=== PATIENT | female | born 1945 | race Caucasian/White ===

== ENCOUNTER → 2016-09-13 | Outpatient (CLI) | payer OTHER, BC ==
[~2016-09-13] VITALS: Ht 149.9 cm; Wt 59.0 kg
[~2016-09-13] MED LIST: ACTEMRA200 MG/10 IV; ACTEMRA80 MG/4 ML IJ; ALDACTONE50 MG PO; AMITRIPTYLINE H50 M2 PO; ARTIFICIAL TEAR15 M3 OPHTHALMIC; ASTAXANTHIN4 MG PO; ATORVASTATIN CA40 MG PO; CALCIUM 500 +1 EAC5 PO; CALCIUM 600 +1 EAC1 PO; CO Q-10100 MG PO; COLACE100 MG PO; COQ-10100 MG PO; COUMADIN 2 MG TA2 M1; COUMADIN 2 MG TA2 M1 PO; COUMADIN 3 MG TA3 M1 PO; COUMADIN 5 MG TA5 M1 PO; COUMADIN7.5 MG PO; DICLOFENAC EC PO; DYAZIDE 37.5-21 EACH OR; DYAZIDE 37.5-21 EACH PO; ELAVIL PO; ESTRACE1 MG PO; EXCEDRIN CAPLE1 EACH PO; FENTANYL PA50 MCG/HR TP; FISH OIL 1,0001 EAC5 PO; FISH OIL 1,001000 M2 PO; FLONASE 0.05%50 MCG NASAL; FOSAMAX 70 MG T70 M1 PO; HYDROCODON-ACE1 EAC1 PO; IMITREX100 MG PO; IMURAN 50MG TAB50 M1 PO; INDERAL LA160 M1 PO; INDERAL LA160 MG PO; KRILL OIL500 MG PO; LASIX 40 MG TAB40 M2 PO; LASIX 40 MG TAB40 MG PO; LUTEIN20 MG PO; LUTEIN40 MG PO; MAGNESIUM GLUC500 M1 PO; MEGA BIOTIN10000 MCG PO; MIRALAX255 GM PO; MIRAPEX 0.250.25 M1 PO; MIRAPEX0.5 MG PO; MULTIVITAMINS PO; NEXIUM 40 MG CA40 M1 PO; OPANA ER20 MG PO; OPANA ER30 MG PO; OPANA10 MG PO; OXYCODON-ACETA1 EAC1 PO; OXYCODONE HCL15 MG PO; OXYCODONE-ACET1 EAC2 PO; OXYCODONE-APAP1 EAC6 PO; OXYCONTIN20 M1 PO; OXYCONTIN30 MG PO; PERCOCET 10-321 EACH PO; PERCOCET 7.5-31 EACH PO; PREDNISONE 2.52.5 M1 PO; PRILOSEC 20 MG20 MG PO; PROBIOTIC1 EAC1 PO; PROBIOTIC1 EACH PO; QUNOL PO; RECLAST 55 MG/100 M IV; REMICADE 1100 MG/VIA; REMICADE 1100 MG/VIA IV; RESTASIS1 EACH OPHTHALMIC; SIMVASTATIN40 MG PO; SKELAXIN 800 M800 M1 PO; SPIRONOLACTONE25 M1 PO; TRAMADOL 50 MG50 MG PO; VITAMIN D 3 PO; VITAMINC500 PO; VOLTAREN GEL 1100 G2; VOLTAREN75 MG PO; XANAX 0.25 MG0.25 MG PO; ZOCOR 20 MG TAB20 M1 PO; [UNRECOGNIZED DRUG - OTHER] PO
--- NOTE | ~2016-09-13 | HPC ---
[facility] [place] [address] PAIN MANAGEMENT CONSULTATION Name: MINDY FERNANDO Room #: REG [facility]#: [id number] Admission: 09/13/16 Attend Phys: Henry Carrasquillo MD Discharge: Date of : 47 Report #: [id number] THIS REPORT FOR: //name// CC: Patric Carrasquillo DATE OF SERVICE: 09/13/2016 DATE OF REGISTRATION: 09/13/2016. REASON FOR VISIT: Followup visit for renewal of chronic medications for severe pain related to rheumatoid arthritis and osteoarthritis. SUBJECTIVE: The patient presents to the pain clinic today for her medication. There are no changes in her current dosing. She reports that her pain with medication is a 7-8/10, mostly in her low back right now. Pain is worsened by walking as little as 100 feet. If she stands for more than 4-5 minutes, she has pain also in her low back. She has had multiple spinal surgeries. Medication side effects are well managed. She uses stool softener as needed. She has a very lengthy list of medications on the electronic medical record which we reviewed. There have been no changes since her last visit. PHYSICAL EXAMINATION: GENERAL: She is as always well-groomed, pleasant, alert and oriented, with an easy going affect. She shows no signs of depression or overmedication. VITAL SIGNS: Her blood pressure 140/73, heart rate 94, BMI 26.2. NECK: She has marked restrictions of motion of her cervical spine. MUSCULOSKELETAL: She is able to move from sitting to standing position and ambulate with mildly antalgic feature. She does not use assistive device. Tenderness is noted in several joints including right hip and left knee, which have both been replaced. IMPRESSION: 1. Chronic intractable pain related to multiple pain generators. She has rheumatoid arthritis and has had multiple joint placements and has multiple spinal surgeries. 2. Management of high risk medication. PLAN: I renewed her medication under terms of our opioid agreement and reviewed the terms of safeguarding. I have prescribed her medication, OxyContin 30 mg b.i.d., 60 tablets with release prescriptions for 4 and 8 weeks and she has been given 90 tablets of oxycodone 10/325 for breakthrough pain. This typically is used no more than 1-2 times per day. [address] [address] PAIN MANAGEMENT CONSULTATION Name: MINDY FERNANDO Room #: REG [facility].#: [id number] Admission: 09/13/16 Attend Phys: Henry Carrasquillo MD Discharge: Date of : 46 Report #: [id number] A followup visit is planned in 3 months. By: [id number] Henry Carrasquillo MD /nt
[2016-09-13 13:01] VITALS: BP 140/73
== END | disposition home or self-care (01) ==
LOC: PAIN 06:45
DX: M06.9 Rheumatoid arthritis, unspecified (principal); G89.29 Other chronic pain; M19.90 Unspecified osteoarthritis, unspecified site; F11.20 Opioid dependence, uncomplicated; Z98.890 Other specified postprocedural states; Z87.891 Personal history of nicotine dependence

== ENCOUNTER → 2016-12-06 | Outpatient (CLI) | payer OTHER, BC ==
[~2016-12-06] VITALS: Ht 152.4 cm; Wt 57.8 kg
--- NOTE | ~2016-12-06 | HPC ---
[facility] [address] [place] [address] PAIN MANAGEMENT CONSULTATION Name: MINDY FERNANDO Room #: REG [facility] Myriam.#: [id number] Admission: 12/06/16 Attend Phys: Patric Kennedy MD Discharge: Date of : 46 Report #: [id number] THIS REPORT FOR: //name// CC: Patric Carrasquillo DATE OF SERVICE: 12/06/2016 Followup visit for management of chronic intractable pain. History of present illness: The patient returns to pain clinic today for a 15 minute followup visit. She is doing well on her current medications. She takes OxyContin 30 mg twice daily and oxycodone 10/325 once daily p.r.n. Under urging from the clinic to use the lowest effective dose, she has reduced her breakthrough medication substantially and I will prescribe her 30 tablets this month. She continues to find that the OxyContin provides the long pain relief reducing her pain by about 50%. She describes her pain as a dull aching pain mostly in her low back. She has had multiple surgeries. She has rheumatoid arthritis and has an extensive cervical fusion limiting the range of motion of her neck. This causes migraine headaches as well. Function has been good, able to function well, complains of some constipation, but manages with stool softener and laxatives. She safeguards her medication carefully under terms of our opioid agreement. I have reviewed with her, her morphine milligram equivalents in the CDC guidelines. PHYSICAL EXAMINATION: GENERAL: She is pleasant, alert and oriented, without signs of overmedication, depression or anxiety. VITAL SIGNS: Blood pressure 127/76, pulse is 86, BMI is 24.7. EXTREMITIES: She has extremity stiffness of her neck. She walks with an antalgic gait. IMPRESSION: 1. Chronic intractable pain with multiple pain generators including rheumatoid arthritis affecting many joints, multiple joint replacements and multiple previous spinal surgeries. 2. Management of high risk medications under terms of an opioid agreement. Medications renewed for three months under terms of our agreement. Her most recent urine drug screen was about 14 months ago, I have elected not to repeat it today but I will likely perform screen at her next visit. By: [id number] Henry Carrasquillo MD /nt
[2016-12-06 10:37] VITALS: BP 127/76
== END | disposition home or self-care (01) ==
LOC: PAIN 06:13
DX: M06.872 Other specified rheumatoid arthritis, left ankle and foot (principal); Z87.891 Personal history of nicotine dependence; Z79.899 Other long term (current) drug therapy

== ENCOUNTER → 2017-01-17 | Outpatient (CLI) | payer OTHER, BC | LOC: RAD 01:44 | DX: Z12.31 Encounter for screening mammogram for malignant neoplasm of breast (principal) ==

== ENCOUNTER → 2017-03-12 | Outpatient (CLI) | payer OTHER, BC ==
[~2017-03-12] VITALS: Ht 152.4 cm; Wt 60.5 kg
--- NOTE | ~2017-03-12 | HPC ---
[facility] [place] [address] PAIN MANAGEMENT CONSULTATION Name: MINDY FERNANDO Room #: REG [facility] [id number] Admission: 03/12/17 Attend Phys: Jay Garrido DO Discharge: Date of : 46 Report #: [id number] THIS REPORT FOR: //name// CC: Jay Carrasquillo MD REFERRING PHYSICIAN: Henry Carrasquillo M.D., typical pain physician. HISTORY OF PRESENT ILLNESS: As you know, the patient is a 71-year-old female with longstanding history of generalized pain. She returns today in followup visit for medication management. The majority of her pain comes from her rheumatoid arthritis. She returns requesting refill on medication. She states no side effects to the therapy. ALLERGIES: No known drug allergies. CURRENT MEDICATIONS: See extensive list in chart. SOCIAL HISTORY: The patient denies tobacco, alcohol or illicit drug use. She is unaccompanied today. IMAGING DATA: No imaging available. PHYSICAL EXAMINATION: VITAL SIGNS: Blood pressure 132/71, pulse 87 and respiratory rate 16 and unlabored. The patient is 100% on room air. Height 5 feet tall, weight 133.4 pounds and BMI calculated 26.1. GENERAL: Well-developed, well-nourished and well-hydrated 71-year-old female. MUSCULOSKELETAL: She has multiple changes in the joints of her upper extremities. Also, changes in the cervical region noted with severe restriction of motion of the cervical spine. She has some antalgic gait. ASSESSMENT: 1. Rheumatoid arthritis. 2. Osteoarthritis. 3. Management of high-risk medications. 4. Chronic intractable pain. PLAN: 1. The patient returns today in followup visit per the request of Dr. Henry Carrasquillo to receive refills of medications. The patient is taking medication through Dr. Carrasquillo service in the form of OxyContin and oxycodone. We have discussed with the patient the medications themselves. She does indicate improved efficacy with this therapy. The combination of medications the patient is taking at present is a 60 mg of OxyContin equating to 90 mg morphine equivalent and taking oxycodone 10/325 one a day equating to [address] [address] PAIN MANAGEMENT CONSULTATION Name: MINDY FERNANDO Room #: REG [facility] Jason#: [id number] Admission: 03/12/17 Attend Phys: Jay Garrido DO Discharge: Date of : 46 Report #: [id number] equivalents. This places the patient just over the recommended maximum for opioid management and chronic pain patients per the CDC. I discussed this with the patient today. This will be also discussed with Dr. Carrasquillo at followup visit and the potential for reducing her dose to comply with CDC recommended guidelines. These medications do appear to be working well. We will continue the patient on the medication at this time and she can discuss the changes congenitally necessary at followup visit with Dr. Carrasquillo. 2. The patient was provided prescription of OxyContin 30 mg dose 1 tab p.o. b.i.d., #60, releases of today, 4 weeks from today, 8 weeks from today, 3 months' worth of medication. Total morphine equivalence of this medication 90. 3. The patient was provided prescription of oxycodone 10/325 one tab per day, #30. No refills. 4. We will see the patient back in followup visit with Dr. Henry Carrasquillo for medication management in 3 months. <ELECTRONICALLY SIGNED> By: Jay Garrido DO 03/13/17 1219 [id number] [id number] Jay Garrido DO /nt
[2017-03-12 10:22] VITALS: BP 132/71
== END ==
LOC: PAIN 06:45
DX: M06.9 Rheumatoid arthritis, unspecified (principal); G89.29 Other chronic pain; Z79.899 Other long term (current) drug therapy

== ENCOUNTER → 2018-02-24 | Outpatient (CLI) | payer OTHER, BC | LOC: RAD 00:18 | DX: Z12.31 Encounter for screening mammogram for malignant neoplasm of breast (principal) ==

== ENCOUNTER 2018-06-15 05:26 | Emergency (ER) | payer OTHER, BC ==
[~2018-06-15] VITALS: Ht 147.3 cm; Wt 56.7 kg
[2018-06-15 06:45] VITALS: BP 112/60
== END 2018-06-15 06:50 | disposition home or self-care (01) ==
LOC: ER 05:26
DX: I83.892 Varicose veins of left lower extremity with other complications (principal); M06.9 Rheumatoid arthritis, unspecified; E78.00 Pure hypercholesterolemia, unspecified; K21.9 Gastro-esophageal reflux disease without esophagitis; F41.9 Anxiety disorder, unspecified; I48.91 Unspecified atrial fibrillation; G43.909 Migraine, unspecified, not intractable, without status migrainosus; Z96.652 Presence of left artificial knee joint; Z87.891 Personal history of nicotine dependence; Z90.89 Acquired absence of other organs; Z90.12 Acquired absence of left breast and nipple; Z90.710 Acquired absence of both cervix and uterus; Z98.890 Other specified postprocedural states

== ENCOUNTER → 2018-08-11 | Outpatient (CLI) | payer OTHER, BC | LOC: NUC 09:26 | DX: M25.562 Pain in left knee (principal); G89.29 Other chronic pain; R60.0 Localized edema; Z96.653 Presence of artificial knee joint, bilateral ==

== ENCOUNTER → 2019-01-12 | Outpatient (CLI) | payer OTHER, BC | LOC: RAD 16:33 | DX: M47.814 Spondylosis without myelopathy or radiculopathy, thoracic region (principal); M48.04 Spinal stenosis, thoracic region; M25.78 Osteophyte, vertebrae; M43.22 Fusion of spine, cervical region; M06.9 Rheumatoid arthritis, unspecified; M43.16 Spondylolisthesis, lumbar region; M43.26 Fusion of spine, lumbar region; Z98.1 Arthrodesis status ==

== ENCOUNTER 2019-05-13 15:32 | Emergency (ER) | payer OTHER, BC ==
[~2019-05-13] VITALS: Ht 152.4 cm; Wt 59.0 kg
[~2019-05-13 15:32] MED LIST changes: -VIBRAMYCIN 100100 MG PO
[2019-05-13 16:57] LABS: HEMATOCRIT 27.7 % (37.0-47.0); HEMOGLOBIN 9.5 gm/dL (12.0-15.0); MCH 32.2 pg (26.0-34.0); MCHC 34.1 g/dL (28.0-37.0); MCV 94.3 fL (80.0-100.0); PLATELET COUNT 320 thou/uL (150-400); RBC 2.94 mil/uL (4.20-5.00); RDW 18.2 % (10.5-14.5); WBC 8.4 thou/uL (4.0-11.0)
[2019-05-13 17:07] LABS: ANION GAP 8 mmol/L (7-16); BUN 27 mg/dL (7-18); CALCIUM 9.3 mg/dL (8.5-10.1); CHLORIDE 100 mmol/L (98-107); CO2 26 mmol/L (21-32); CREATININE 0.9 mg/dL (0.6-1.0); GLUCOSE 82 mg/dL (74-106); SODIUM 134 mmol/L (136-145)
[2019-05-13 17:08] LABS: POTASSIUM 5.2 mmol/L (3.5-5.1); PROTIME 64.8 Seconds (9.3-11.4)
[2019-05-13 17:12] LABS: INR 6.3
[2019-05-13 17:16] LABS: TROPONIN-I <0.06 ng/mL (<0.06)
[2019-05-13 17:29] LABS: ABSOLUTE NEUTROPHILS 3.9 thou/uL (1.4-8.2); ANISOCYTOSIS 1+; POLYCHROMASIA OCCASIONAL
[2019-05-13] MEDS ORDERED: VIBRAMYCIN 100100 MG PO (18:58)
[2019-05-13 19:14] VITALS: BP 160/87
== END 2019-05-13 19:14 | disposition home or self-care (01) ==
LOC: ER 15:32
PROVIDERS: Emergency Medicine
DX: S81.801A Unspecified open wound, right lower leg, initial encounter (principal); E78.00 Pure hypercholesterolemia, unspecified; M06.9 Rheumatoid arthritis, unspecified; I48.91 Unspecified atrial fibrillation; K21.9 Gastro-esophageal reflux disease without esophagitis; G43.909 Migraine, unspecified, not intractable, without status migrainosus; F41.9 Anxiety disorder, unspecified; Z87.891 Personal history of nicotine dependence; Z90.710 Acquired absence of both cervix and uterus; W57.XXXA Bitten or stung by nonvenomous insect and other nonvenomous arthropods, initial encounter; Y93.89 Activity, other specified; Y92.89 Other specified places as the place of occurrence of the external cause; Y99.8 Other external cause status

== ENCOUNTER → 2019-05-13 | Outpatient (CLI) | payer OTHER, BC ==
[~2019-05-13] MED LIST changes: +VIBRAMYCIN 100100 MG PO
== END ==
LOC: SJCVCIMAG 13:22
DX: I08.1 Rheumatic disorders of both mitral and tricuspid valves (principal); I44.0 Atrioventricular block, first degree; R94.31 Abnormal electrocardiogram [ECG] [EKG]; I48.0 Paroxysmal atrial fibrillation; L03.115 Cellulitis of right lower limb; M06.9 Rheumatoid arthritis, unspecified; G43.909 Migraine, unspecified, not intractable, without status migrainosus; K21.9 Gastro-esophageal reflux disease without esophagitis; Z79.899 Other long term (current) drug therapy; Z79.01 Long term (current) use of anticoagulants

== ENCOUNTER → 2019-06-02 | Outpatient (CLI) | payer OTHER, BC ==
[~2019-06-02] MED LIST changes: +VIBRAMYCIN 100100 MG PO
== END ==
LOC: HYPER 13:12
DX: I87.333 Chronic venous hypertension (idiopathic) with ulcer and inflammation of bilateral lower extremity (principal); L97.812 Non-pressure chronic ulcer of other part of right lower leg with fat layer exposed; L97.821 Non-pressure chronic ulcer of other part of left lower leg limited to breakdown of skin; S80.821A Blister (nonthermal), right lower leg, initial encounter; S80.822A Blister (nonthermal), left lower leg, initial encounter; M06.9 Rheumatoid arthritis, unspecified; L84 Corns and callosities; E78.5 Hyperlipidemia, unspecified; H26.9 Unspecified cataract; K21.9 Gastro-esophageal reflux disease without esophagitis; Z87.891 Personal history of nicotine dependence; Z79.01 Long term (current) use of anticoagulants; Z85.828 Personal history of other malignant neoplasm of skin; Z90.49 Acquired absence of other specified parts of digestive tract; X58.XXXA Exposure to other specified factors, initial encounter; Y93.89 Activity, other specified; Y92.89 Other specified places as the place of occurrence of the external cause; Y99.8 Other external cause status

== ENCOUNTER → 2019-06-08 | Outpatient (CLI) | payer OTHER, BC | LOC: SJCVCIMAG 08:53 | DX: L97.828 Non-pressure chronic ulcer of other part of left lower leg with other specified severity (principal); L97.818 Non-pressure chronic ulcer of other part of right lower leg with other specified severity; I73.9 Peripheral vascular disease, unspecified ==

== ENCOUNTER → 2019-06-16 | Outpatient (CLI) | payer OTHER, BC | LOC: HYPER 15:19 | DX: I87.333 Chronic venous hypertension (idiopathic) with ulcer and inflammation of bilateral lower extremity (principal); L97.822 Non-pressure chronic ulcer of other part of left lower leg with fat layer exposed; L97.812 Non-pressure chronic ulcer of other part of right lower leg with fat layer exposed; I87.2 Venous insufficiency (chronic) (peripheral); R60.0 Localized edema; E78.5 Hyperlipidemia, unspecified; K21.9 Gastro-esophageal reflux disease without esophagitis; M06.9 Rheumatoid arthritis, unspecified; Z85.828 Personal history of other malignant neoplasm of skin ==

== ENCOUNTER → 2019-11-11 | Outpatient (CLI) | payer OTHER, BC | LOC: SJCVC 14:58 | PROVIDERS: ATTEND Internal Medicine Cardiovascular Disease | DX: R94.31 Abnormal electrocardiogram [ECG] [EKG] (principal); I48.3 Typical atrial flutter; K21.9 Gastro-esophageal reflux disease without esophagitis; I48.0 Paroxysmal atrial fibrillation; Z79.899 Other long term (current) drug therapy; Z87.891 Personal history of nicotine dependence ==

== ENCOUNTER → 2019-11-19 | Outpatient (CLI) | payer OTHER, BC | LOC: RAD 01:32 | PROVIDERS: ATTEND Internal Medicine | DX: Z12.31 Encounter for screening mammogram for malignant neoplasm of breast (principal) ==

== ENCOUNTER → 2019-12-01 | Outpatient (CLI) | payer OTHER, BC | LOC: SJCVC 15:31 | PROVIDERS: ATTEND Internal Medicine Cardiovascular Disease | DX: I44.0 Atrioventricular block, first degree (principal); R94.31 Abnormal electrocardiogram [ECG] [EKG]; I48.0 Paroxysmal atrial fibrillation; Z79.899 Other long term (current) drug therapy; K21.9 Gastro-esophageal reflux disease without esophagitis; Z82.49 Family history of ischemic heart disease and other diseases of the circulatory system; Z87.891 Personal history of nicotine dependence ==

== ENCOUNTER → 2019-12-04 | Outpatient (CLI) | payer OTHER, BC | LOC: ULTRA 12:12 | PROVIDERS: ATTEND Internal Medicine | DX: N60.82 Other benign mammary dysplasias of left breast (principal); N60.81 Other benign mammary dysplasias of right breast ==

== ENCOUNTER → 2020-01-20 | Outpatient (CLI) | payer OTHER, BC | LOC: RAD 16:21 | PROVIDERS: ATTEND Internal Medicine | DX: I51.7 Cardiomegaly (principal) ==

== ENCOUNTER → 2020-02-10 | Outpatient (CLI) | payer OTHER, BC | LOC: CAT 13:58 | PROVIDERS: ATTEND Internal Medicine | DX: J47.9 Bronchiectasis, uncomplicated (principal); R91.8 Other nonspecific abnormal finding of lung field; J98.4 Other disorders of lung; J84.9 Interstitial pulmonary disease, unspecified ==

== ENCOUNTER → 2020-03-01 | Outpatient (CLI) | payer OTHER, BC | LOC: SJCVC 15:21 | PROVIDERS: ATTEND Internal Medicine Cardiovascular Disease | DX: I44.0 Atrioventricular block, first degree (principal); R94.31 Abnormal electrocardiogram [ECG] [EKG]; I48.0 Paroxysmal atrial fibrillation; I48.3 Typical atrial flutter; M06.9 Rheumatoid arthritis, unspecified; J98.4 Other disorders of lung; K21.9 Gastro-esophageal reflux disease without esophagitis; Z79.899 Other long term (current) drug therapy; Z82.49 Family history of ischemic heart disease and other diseases of the circulatory system; Z87.891 Personal history of nicotine dependence ==

== ENCOUNTER 2020-04-11 13:11 | Inpatient (IN) | payer OTHER, BC ==
[~2020-04-11] VITALS: Ht 152.4 cm; Wt 71.2 kg
[2020-04-11 13:20] VITALS: BP 118/62
[2020-04-11] MEDS ORDERED: RISPERIDONE1 MG PO (13:45)
[2020-04-11] MEDS ORDERED: PACERONE 200 M200 M1 PO (13:45)
[2020-04-11] MEDS ORDERED: ELIQUIS5 MG PO (13:45)
[2020-04-11 16:03] LABS: HEMATOCRIT 28.1 % (37.0-47.0); HEMOGLOBIN 9.3 gm/dL (12.0-15.0); MCH 30.1 pg (26.0-34.0); MCHC 33.3 g/dL (28.0-37.0); MCV 90.6 fL (80.0-100.0); PLATELET COUNT 313 thou/uL (150-400); RDW 25.4 % (10.5-14.5); WBC 10.2 thou/uL (4.0-11.0)
[2020-04-11 16:19] LABS: CALCIUM 9.6 mg/dL (8.5-10.1); CREATININE 1.2 mg/dL (0.6-1.0)
[2020-04-11 16:25] LABS: ALBUMIN 3.1 g/dL (3.4-5.0); TOTAL BILIRUBIN 0.6 mg/dL (0.2-1.0); TOTAL PROTEIN 8.7 g/dL (6.4-8.2)
[2020-04-11 16:27] LABS: APTT 28.2 Seconds (24.5-32.8); INR 1.2
[2020-04-11 16:38] LABS: ABSOLUTE NEUTROPHILS 4.6 thou/uL (1.4-8.2); ANISOCYTOSIS 1+
[2020-04-11 18:58] VITALS: BP 118/62
[2020-04-11 19:09] VITALS: BP 113/60
[2020-04-11 19:13] LABS: BF NUCLEATED CELLS 54858 /mm3; BF RBC 17728 /mm3
[2020-04-11 19:18] LABS: TOTAL VOLUME 35 mL
[2020-04-11 19:19] LABS: CLARITY CLOUDY; COLOR YELLOW
[2020-04-11 19:47] LABS: SOURCE RT KNEE
[2020-04-11 20:00] LABS: BF CRYSTALS No Crystals seen (NONE SEEN)
[2020-04-11 20:17] VITALS: BP 110/48
[2020-04-11 21:22] LABS: BF MACROPHAGE 13 %; BF NEUTROPHILS 80 %; SOURCE KNEE JOINT
--- NOTE | 2020-04-12 04:40 | NUR ---
RECIEVED CARE OF THIS PATIENT AT 1930. ARRIVED ON UNIT VIA BED FROM ED ACCOMPANIED BY ED PERSONNEL. PT ALERT AND ORIENTED X4. HAS THREE WOUNDS ON HER, TWO ON HER R LEG AND ONE ON HER L ELBOW. HER R KNEE IS 3+ EDEMA AND HER LLE IS HOT TO THE TOUCH. PATIENT IS NPO SINCE [place] FOR A "WASHING" OF HER R KNEE BY DR BRISCOE. C/O PAIN, MED GIVEN. PATIENT UP TO THE BATHROOM WITH WALKER AND ASSIST. HAS SCD ON LLE. SLEPT OFF AND ON DURING NIGHT.
[2020-04-12 05:49] LABS: HEMATOCRIT 23.6 % (37.0-47.0); HEMOGLOBIN 8.1 gm/dL (12.0-15.0); MCH 30.5 pg (26.0-34.0); MCHC 34.2 g/dL (28.0-37.0); MCV 89.1 fL (80.0-100.0); RBC 2.65 mil/uL (4.20-5.00); RDW 24.9 % (10.5-14.5); WBC 8.1 thou/uL (4.0-11.0)
[2020-04-12 05:59] LABS: CALCIUM 8.4 mg/dL (8.5-10.1); POTASSIUM 3.6 mmol/L (3.5-5.1)
[2020-04-12 08:29] VITALS: BP 106/65
--- NOTE | 2020-04-12 10:12 | NUR ---
ASSESSMENT: CM REVIEWED CHART AND SPOKE WITH PT. PT IS HERE DUE TO RIGHT KNEE PAIN/SEPTIC ARTHRITIS. PT IS TO HAVE DEBRIDEMENT TODAY. ID IS CONSULTED. PT REPORTS LIVING AT HOME WITH HER . PT REPORTS ABOUT 2 STEPS WITH HANDRAILS TO ENTER THE HOME AND NO STEPS ONCE INSIDE. PT REPORTS HAVING A GRAB BAR AND SHOWER CHAIR. PT STATES SHE HAS A WALKER AT HOME. PT REPORTS HAVING 2L OXYGEN ARRANGED AT HOME FOR BEDTIME. PT STATES SHE HAS HAD [facility] IN THE PAST BUT NOT CURRENTLY. CM WILL CONTINUE TO FOLLOW TO ASSIST NEEDED.
--- NOTE | 2020-04-12 10:50 | NUR ---
CONSULTED DR MCKEE FOR DR CAT REASON SEPTIC RIGHT KNEE. DR MCKEE HERE AT FACILITY. PATIENT DOWN IN PRE OP AT THIS TIME WAS TAKEN AT 10:03
[2020-04-12 14:58] VITALS: BP 109/59
[2020-04-12 16:47] VITALS: BP 109/62
[2020-04-12 19:05] VITALS: BP 104/57
[2020-04-13 01:06] LABS: GLYCOHEMOGLOBIN (HGB A1C) 5.5 % (4.8-5.6)
--- NOTE | 2020-04-13 02:55 | NUR ---
ASSESSED AT START OF SHIFT. PT RESTING IN BED. RT KNEE DRESSING C/D/I WITH HEMOVAC INTACT. PT UP WITH ASSISTX1 TO BSC. IV INTACT WITH FLUIDS INFUSING. HYDROCODONE GIVEN FOR PAIN. PT ON 2L OF O2. WEARS 2L AT HOME HS. BSG CHECKED. FALL PREC IN PLACE AND CALL LIGHT AT REACH WILL CONT TO MONITOR.
[2020-04-13 05:40] VITALS: BP 97/54
[2020-04-13 07:39] VITALS: BP 93/47
[2020-04-13 07:40] LABS: ABSOLUTE NEUTROPHILS 3.6 thou/uL (1.4-8.2); BASOPHILS 0.3 % (0.0-2.0); EOSINOPHILS 0.9 % (0.0-3.0); HEMATOCRIT 23.9 % (37.0-47.0); HEMOGLOBIN 7.9 gm/dL (12.0-15.0); LYMPHOCYTES 41.9 % (24.0-44.0); MCH 28.6 pg (26.0-34.0); MCHC 32.9 g/dL (28.0-37.0); MCV 86.9 fL (80.0-100.0); MONOCYTES 11.2 % (1.0-8.0); PLATELET COUNT 267 thou/uL (150-400); POLYS 45.7 % (36.0-66.0); RBC 2.75 mil/uL (4.20-5.00); RDW 25.1 % (10.5-14.5); WBC 7.8 thou/uL (4.0-11.0)
[2020-04-13 07:53] LABS: CALCIUM 8.4 mg/dL (8.5-10.1); CREATININE 0.8 mg/dL (0.6-1.0); POTASSIUM 3.4 mmol/L (3.5-5.1)
[2020-04-13 08:27] LABS: ANISOCYTOSIS 3+; MACROCYTES 1+; MICROCYTES 1+
--- NOTE | 2020-04-13 09:38 | NUR ---
ASSUMED CARE OF PATIENT PT ALERT XS 4 NO PAIN IV ABT INFUSING ORDERED. PT STATES NO PAIN.
--- NOTE | 2020-04-13 10:56 | O ---
[facility] [place] [address] [place] [address] OPERATIVE REPORT Name: MINDY FERNANDO Room #: 443-P ADM IN M.R.#: [id number] Admission: 04/11/20 Attend Phys: Stephanie Voss MD Discharge: Date of : 46 Report #: [id number] THIS REPORT FOR: cc: Zuleima Monreal MD, Rochelle M. MD McCabe,Kyle Johnson MD ~ DATE OF SERVICE: 04/12/2020 SERVICE: Orthopedics. FACILITY: [place]. SURGEON: Kyle Santana MD PLANISHING HAMMER OPERATOR: Meliza Galindo NP. PREOPERATIVE DIAGNOSES: 1. Status post right total knee arthroplasty. 2. Septic arthritis, right total knee. POSTOPERATIVE DIAGNOSES: 1. Status post right total knee arthroplasty. 2. Septic arthritis, right total knee. PROCEDURES: 1. Right knee arthroscopic synovectomy of multiple compartments. 2. Arthroscopic irrigation and drainage of septic arthritis, right knee. COMPLICATIONS: None. DRAINS: One Hemovac. SPECIMEN: Cultures swabs x2 sent for full battery of studies. FINDINGS: 1. Significant purulence. No rinds or significant particulate debris or evidence of chronic biofilm. 2. Stable appearing implant. HISTORY: The patient is a 74-year-old female with approximately 4-5 day history of worsening right leg pain, swelling, and stiffness. She had elevated inflammatory markers and had aspiration of her right knee, which showed 55,000 white blood cells. She has a history of total knee replacement in 03/2014 that was uneventful. She is a rheumatoid arthritis patient and is on chronic steroids. She is immunosuppressed. She has no history of previous infection. [facility] [address] [place] [address] OPERATIVE REPORT Name: MINDY FERNANDO Room #: 443-P ADM IN M.R.#: [id number] Admission: 04/11/20 Attend Phys: Stephanie Voss MD Discharge: Date of : 46 Report #: [id number] She was indicated for surgical treatment and the risks, benefits, alternatives and indications of surgery were discussed with her in detail and she gave full informed consent. Risks include but not limited to pain, bleeding, persistent infection, need for further surgery including a 2-stage revision operation as well as complications related to anesthesia and the infection itself up to and including mortality. Despite all these risks, she wished to proceed. PROCEDURE IN DETAIL: After right lower extremity was correctly identified in the preoperative holding area as the operative extremity, the patient was taken to the operating room where general anesthesia was induced without complication. She was padded appropriately. Prophylactic antibiotics were not administered intraoperatively as she is already on antibiotic regimen. Right leg was prepped and draped in standard sterile fashion. Time-out procedure was performed. Leg was elevated for 10 minutes and the tourniquet was inflated to 300 mmHg. We did not use an Esmarch. Standard anterolateral and anteromedial portals were established. Immediately, purulent fluid was seen to egress from the joint. This was cultured. We placed the scope into the knee. She had a fair amount of stiffness in the knee. This is chronic. There was some scarring that was from her recovery from the surgery rather than from the actual infection. There was really no evidence of chronic appearing infectious process. I used a shaver and debrided the intercondylar notch region as well as the medial and lateral gutters, establish a proximal lateral portal and set an inflow through this and this allowed for a good irrigation. We ran a total of 12 liters of irrigation through the knee and rotated. The scope and the shaver and the inflow amongst the three portals in order to get the best visualization as well as a best access to all of the synovial recesses. Thorough synovectomy was performed in the suprapatellar pouch around the patellar component, which was stable into the notch and then into the front of the knee anterior compartment as well as along the medial gutter and the lateral gutter and all the synovitis that could be visualized. This was successfully resected. At this point, a drain was passed through the proximal lateral portal and then the wound was closed around the drain without tying the drain in. We then placed a gram of vancomycin powder through the anteromedial and anterolateral portals into the joint space around the prosthesis. The drain was maintained in the suprapatellar pouch and suction was not applied immediately in order to allow the vancomycin to be retained and utilized possible. Portal sites were closed. Sterile dressing was applied. The patient was awakened from anesthesia and taken to recovery room in stable condition. There were no complications. All counts were recorded as correct. <ELECTRONICALLY SIGNED> By: Kyle Santana MD 04/13/20 1056 1014 1035 Kyle Santana MD /nt
[2020-04-13 14:11] VITALS: BP 93/47
--- NOTE | 2020-04-13 14:15 | NUR ---
Letty mckeon called back with out of pocket cost for iv vanco $140 a week and iv ceftriaxone $115 a week this am. Surgical cultures are pending. IV atb changed to Cefepime 2gm q 8hrs today per ID. Letty updated. Pt had I/D of her rt TKA yesterday. Trying to save the implant. WBAT and no other surgical interventions anticipated per ortho. Pt is working with therapy. Will f/u with Letty regarding out of pocket once drug confirmed. Pt will need a midline or picc line for home infusion.
[2020-04-13 15:34] VITALS: BP 99/57
--- NOTE | 2020-04-13 19:20 | NUR ---
DR CAT HERE TO SEE PATIENT PULLED HEMO VAC . PT UP IN BEDSIDE CHAIR FOR MEALS PT HAD HER WALKING AND EXERCISING. PT USES BEDSIDE COMMODE. DR GARZA HERE TO SEE PATIENT. DR BOND PUT FLUIDS ON HOLD TO SEE WHAT BLOOD SUGARS ARE.
[2020-04-13 22:10] VITALS: BP 106/67
--- NOTE | 2020-04-14 01:37 | HC ---
[facility] [place] [address] [place] [address] CONSULTATION Name: MINDY FERNANDO Room #: 443-P ADM IN M.R.#: [id number] Admission: 04/11/20 Attend Phys: Stephanie Voss MD Discharge: Date of : 46 Report #: [id number] THIS REPORT FOR: cc: Zuleima Monreal MD, Rochelle M. MD Geha, Daniel J. MD ~ DATE OF SERVICE: 04/13/2020 INFECTIOUS DISEASE CONSULTATION REASON FOR CONSULTATION: I was asked to evaluate concerning right total knee arthroplasty, prosthetic joint infection. HISTORY OF PRESENT ILLNESS: This is a 74-year-old with underlying rheumatoid arthritis, who had undergone bilateral total knee arthroplasties in 2015, followed by 2016 right followed by left. She has had persistent pain in the left knee, which is being followed by Dr. Alberto. Five days ago, she had acute onset of right knee pain, swelling, and warmth. Prior to this, she had a skin biopsy for skin cancer evaluation. She also had dental work done previously. She has rheumatoid arthritis and has been on 3-drug immunosuppression including biologic agent Imuran and prednisone. No other joints have flared up on her. She has had no other skin issues: Denies any cardiopulmonary, GI or complaints. She was taken to surgery yesterday for arthroscopic washout. Discussion with Orthopedic Surgery notes that this prosthesis have not been replaceable polyethylene parts. Fluid analysis showed significant neutrophil count. Gram stain showed no organisms and in 24 hours, she has growth of Pseudomonas aeruginosa. Empirically, she had been placed on vancomycin and Zosyn yesterday afternoon. Denies any ongoing fever, chills or sweats. Overall, feels improved today from yesterday. REVIEW OF SYSTEMS: A 14-point review of system was negative other than what has been described above. ALLERGIES: None known. MEDICATIONS: As noted on her MAR including vancomycin and Zosyn. Her azathioprine has been at 50 mg b.i.d. She receives Remicade every 6 weeks. She is due to receive a dose first of next week. Her prednisone dose has been 2.5 mg a day. PAST MEDICAL HISTORY: Bilateral total knee arthroplasties, right lower extremity skin cancer with chronic wound that has had skin grafting done over this past several months, biopsy of the skin to the pretibial proximal lower [facility] [address] [place] [address] CONSULTATION Name: MINDY FERNANDO Chadd Room #: 443-P [facility] IN .R.#: [id number] Admission: 04/11/20 Attend Phys: Stephanie Voss MD Discharge: Date of : 46 Report #: [id number] leg, tonsillectomy, past smoker, left breast biopsy is benign, hysterectomy, lumbar laminectomy, bilateral foot surgeries, rheumatoid arthritis, hyperlipidemia, lumbar fusion, GERD, anxiety, posterior cervical fusion, bilateral cataract extraction, left ulnar nerve transposition, atrial fibrillation, and migraine headaches. ALLERGIES: None known. FAMILY HISTORY: No report of tuberculosis. SOCIAL HISTORY: Occasional alcohol. Past history of tobacco use. PHYSICAL EXAMINATION: VITAL SIGNS: Afebrile and hemodynamically stable. GENERAL: Alert and cooperative. SKIN: With ulceration over the proximal pretibial skin on the right from her skin biopsy. No purulent drainage. No surrounding cellulitis. No palpable adenopathy. EYES: Without scleral icterus. MOUTH: Without mucositis. NECK: Supple. LUNGS: Clear. HEART: Regular, without murmur, gallop or rub. ABDOMEN: Soft and nontender. EXTREMITIES: With changes of advanced rheumatoid arthritis. Right knee was in surgical wrap and [place] wrap without drainage. Left knee incision is unremarkable. No significant effusion, erythema, or tenderness to the left knee. Cranial nerves are intact. Strength in upper and lower extremities was symmetric and within normal limits. Mood is without anxiety or depression. LABORATORY STUDIES: Reviewed. Microbiology reviewed. X-rays of the knee reviewed. Ultrasound of the right lower extremity reviewed. IMPRESSION: 1. Right total knee arthroplasty, Pseudomonas aeruginosa, prosthetic joint infection of late onset with early detection of infection within the last 5 days. 2. Underlying rheumatoid arthritis, on 3-drug immunosuppression. 3. Skin cancer, status post excision, right lower extremity. 4. Anemia. 5. Mild chronic kidney disease. RECOMMENDATIONS: We will continue antibiotic coverage with cefepime, pending final culture results. Hold immunosuppression if stress dose corticosteroids. Discussed with Orthopedic Surgery regarding further surgical plan. Notify [address] [place] [address] CONSULTATION Name: MINDY FERNANDO Room #: 443-P [facility] IN M.R.#: [id number] Admission: 04/11/20 Attend Phys: Stephanie Voss MD Discharge: Date of : 47 Report #: [id number] Rheumatology regarding her immunosuppression and current infection. I have discussed with the patient and at the bedside. <ELECTRONICALLY SIGNED> By: Isac Salgado MD 04/14/20 0137 0106 0126 Isac Salgado MD /nt
--- NOTE | 2020-04-14 02:58 | NUR ---
ASSUMED PT CARE AT SHIFT CHANGE. PT IS A&OX4. PT IS PLEASANT AND CALM. PT HAS A LEFT FOREARM IV THAT IS INFILTRATED. PT STATES SHE IS A HARD STICK. I CALLED THE CARTRIDGE GAUGER SHE WAS BUSY WITH A CODE. I HAD A NURSE FROM [facility] LOOK AT IT AND SHE AGREED IT WOULD HAVE TO BE A CARTRIDGE GAUGER ATTEMPT. PT HAS NOT HAD FLUIDS VIA IV THE WHOLE SHIFT. PT DOES COMPLAIN OF PAIN. ORAL PAIN MEDICATION ADMINISTERED. HOURLY ROUNDING DONE ON PT. WILL CONTINUE TO MONITOR.
[2020-04-14 03:50] VITALS: BP 85/51
[2020-04-14 07:33] VITALS: BP 122/56
[2020-04-14 09:13] LABS: HEMATOCRIT 31.9 % (37.0-47.0); MCH 28.5 pg (26.0-34.0); MCHC 31.8 g/dL (28.0-37.0); MCV 89.8 fL (80.0-100.0); RBC 3.55 mil/uL (4.20-5.00); RDW 26.1 % (10.5-14.5); WBC 10.9 thou/uL (4.0-11.0)
[2020-04-14 09:24] LABS: HEMOGLOBIN 10.1 gm/dL (12.0-15.0)
[2020-04-14 09:30] LABS: ALBUMIN 2.4 g/dL (3.4-5.0); CALCIUM 8.5 mg/dL (8.5-10.1); CREATININE 0.8 mg/dL (0.6-1.0); POTASSIUM 4.6 mmol/L (3.5-5.1); TOTAL BILIRUBIN 0.4 mg/dL (0.2-1.0); TOTAL PROTEIN 7.1 g/dL (6.4-8.2)
--- NOTE | 2020-04-14 12:37 | NUR ---
A #4F POWER INJECTABLE MIDLINE WAS PLACED PER HOSPITAL POLICY. LINE WAS TRIMMED TO 12CM AND ADVANCED WITHOUT DIFFICULTY. LINE WAS SECURED AND RELEASED FOR USE
--- NOTE | 2020-04-14 13:06 | NUR ---
ON-GOING ASSESSMENT: CM REVIEWED CHART AND SPOKE WITH ATTENDING AND BEDSIDE RN. PTS BLOOD SUGAR WAS VERY LOW THIS AM, 36. PT REMAINS ON IV ANBX. MIDLINE WAS PLACED TODAY. [employer] IS FOLLOWING PATIENT AND PRICED CEFE[GUERA 2G Q8 WOULD COST HER 174.12/WEEK. [facility] IS FOLLOWING PATIENT. CM WILL CONTINUE TO FOLLOW TO ASSIST NEEDED. PT IS HOPING SHE WILL BE ABLE TO RETURN HOME WITH HH AND IV ANBX AT DISCHARGE.
[2020-04-14 15:26] VITALS: BP 96/60
--- NOTE | 2020-04-14 16:26 | NUR ---
PT ASSESSED AT START OF SHIFT. PT C/O NAUSEA THIS AM AND ACCUCHECK WAS 36. D50 GIVEN AFTER IV ACCESS OBTAINED IV INFILTRATED DURING THE NOC AND NOT ABLE TO BE RESTARTED. DR. BOND NOTIFIED. NEW ORDERS OBTAINED. SECOND DOSE OF D50 NEEDED TO BE GIVEN AT ACCUCHECK REMAINED AT 36 WHEN RECHECKED. PT PLACED ON D10 DRIP AND SUGARS CHECKED FREQUENTLY AND HAVE REMAINED STABLE. PT STATES SHE FEELS MUCH BETTER. UP TO THE BSC W/ STANDBY ASSIST. EATING AND DRINKING WELL. IV TEAM PLACED ANDI MIDLINE IV WELL NEW PERIPHERAL IV INFILTRATED.
[2020-04-14 19:13] VITALS: BP 114/73; BP 124/74
--- NOTE | 2020-04-15 02:10 | NUR ---
ASSESSED AT START OF SHIFT. PT RESTING IN BED. IV INTACT AND FLUIDS INFUSING. Q4 BSG CHECKED. PT UP WITH ASSISTX1 TO THE BSC. RT KNEE DRESSING C/D/I. HYDROCODONE GIVEN FOR PAIN. FALL PREC IN PLACE AND WILL CONT TO MONITOR.
[2020-04-15 04:34] VITALS: BP 117/70
[2020-04-15 09:18] VITALS: BP 99/60
--- NOTE | 2020-04-15 10:48 | EKG ---
[address] [address] ELECTROCARDIOGRAM REPORT Name: ABDULLAHIMINDY R Room #: 443-P ADM IN M.R.#: [id number] Admission: 04/11/20 Attend Phys: Stephanie Voss MD Discharge: Date of : 46 Report #: [id number] [facility] Test Date: 2020-04-15 Test Time: 09:40:28 Pat Name: MINDY FERNANDO Department: Room: 443 Gender: F Operations Support Coordinator: JONATHAN : 1945 Requested By: Stephanie Voss Order Number: [id number] MD: Juancarlos Zavala Measurements Intervals [place] Rate: 124 P: 262 UT: 46 QRS: -5 QRSD: 87 T: 232 QT: 394 QTc: 566 Interpretive Statements Suspect Atrial flutter Posterior infarct, old Nonspecific T abnormalities, lateral leads Prolonged QT interval Compared to ECG 04/19/2014 18:52:17 T-wave abnormality now present Prolonged QT interval now present Atrial fibrillation no longer present ST (T wave) deviation no longer present Possible ischemia no longer present Electronically Signed On 04-15-2020 10:48:38 WELT BEATER by Juancarlos Zavala [email or web address] <ELECTRONICALLY SIGNED> By: Juancarlos Zavala MD, FAC 04/15/20 1048 Juancarlos Zavala MD, FAC /EPI
[2020-04-15 11:45] VITALS: BP 106/68
[2020-04-15 11:52] LABS: HEMATOCRIT 26.5 % (37.0-47.0)
--- NOTE | 2020-04-15 12:35 | NUR ---
ASSUMED PT CARE THIS AM. PT ON ROOM IAR. BLOOD SUGAR BEING CHECKED FREQUENTLY. FLUIDS INFUSING. MIDLINE PATENT, BUT WILL NOT DRAW. MEDS TAKEN WITOHUT COMPLAINT THIS AM. NO PAIN NOTED. FALL PRECAUTIONS IN PLACE.
--- NOTE | 2020-04-15 12:57 | 2DMMODE ---
[facility] [place] [address] 2 D/M-MODE ECHOCARDIOGRAM Name: MINDY FERNANDO Room #: 443-P ADM IN M.R.#: [id number] Admission: 04/11/20 Attend Phys: Stephanie Voss MD Discharge: Date of : 47 Report #: [id number] THIS REPORT FOR: cc: Zuleima Monreal MD, Rochelle M. MD Lundgren, Craig H. MD [facility] ~ APPROVED REPORT Study performed: 04/15/2020 11:42:18 EXAM: Comprehensive 2D, Doppler, and color-flow Echocardiogram Patient Location: In-Patient Room #: 443 Status: routine BSA: 1.68 HR: 125 bpm BP: 118/62 mmHg Rhythm: Atrial Fibrillation Indications Atrial Fibrillation 2D Dimensions RVDd: 20.20 mm IVSd: 10.57 (7-11mm) LVOT Diam: 16.87 (18-24mm) LVDd: 33.17 mm PWd: 12.54 (7-11mm) Ascending Ao: 28.77 (22-36mm) LVDs: 21.82 (25-40mm) Left Atrium: 35.47 (27-40mm) Aortic Root: 24.62 mm Volumes Left Atrial Volume (Systole) Single Plane 4CH: 35.84 mL Single Plane 2CH: 32.15 mL LA ESV Index: 24.00 mL/m2 Aortic Valve AoV Peak Shiva.: 1.12 m/s AO Peak Gr.: 4.98 mmHg LVOT Max P.55 mmHg LVOT Max V: 0.94 m/s JOÃO Vmax: 1.89 cm2 Mitral Valve MV Peak Gr.: 9.[address] [facility] [address] [place] [address] 2 D/M-MODE ECHOCARDIOGRAM Name: MINDY FERNANDO Room #: 443-P [facility] IN ..#: [id number] Admission: 04/11/20 Attend Phys: Morenita Lee Discharge: Date of : 47 Report #: [id number] Mean Gr.: 3.18 mmHg E/A Ratio: 16.9 MV Decel. Time: 156.37 ms MV E Max Shiva.: 1.18 m/s MV A Shiva.: 0.07 m/s MV Max Shiva.: 1.52 m/s MV Mean Shiva.: 0.73 m/s MV VTI: 193.22 mm MV PHT: 45.35 ms IVRT: 69.20 ms Pulmonary Valve PV Peak Shiva.: 1.11 m/s PV Peak Gr.: 4.94 mmHg Pulmonary Vein P Vein A: 0.31 m/s P Vein A Dur.: 101.5 msec Tricuspid Valve TR Peak Shiva.: 2.82 m/s RAP Estimate: 10.00 mmHg TR Peak Gr.: 31.87 mmHg RVSP: 42.00 mmHg Left Ventricle The left ventricle is normal size. There is normal LV segmental wall motion. There is normal left ventricular wall thickness. The left ventricular systolic function is normal. The left ventricular ejection fraction is within the normal range. LVEF is 60-65%. This study is not technically sufficient to allow evaluation of the LV diastolic function. Right Ventricle The right ventricle is normal size. The right ventricular systolic function is normal. Atria Left atrium is mildly dilated. The right atrium size is normal. Aortic Valve The aortic valve is trileaflet, mildly sclerotic. No aortic regurgitation is present. There is no aortic valvular stenosis. Mitral Valve Minimal mitral annular calcification Mild mitral regurgitation. No evidence of mitral valve stenosis. [facility] [address] [place] [address] 2 D/M-MODE ECHOCARDIOGRAM Name: MINDY FERNANDO Ch[place] Room #: 443-P [facility] IN M.R.#: [id number] Admission: 04/11/20 Attend Phys: Morenita Lee Discharge: Date of : 47 Report #: [id number] Tricuspid Valve The tricuspid valve is normal in structure. Mild tricuspid regurgitation. Pulmonary artery pressure of 35mmHg Pulmonic Valve The pulmonary valve is normal in structure. There is no pulmonic valvular regurgitation. Great Vessels The aortic root is normal in size. IVC is normal in size. Pericardium There is no pericardial effusion. <Conclusion> The left ventricular systolic function is normal. There is normal LV segmental wall motion. LVEF is 60-65%. Left atrium is mildly dilated. The aortic valve is trileaflet, mildly sclerotic. No aortic regurgitation or stenosis Minimal mitral annular calcification. Mild mitral regurgitation. Mild tricuspid regurgitation. Pulmonary artery pressure of 35mmHg There is no pericardial effusion. <ELECTRONICALLY SIGNED> By: Darrion Cornejo MD, FACC 04/15/20 1257 [id number] Darrion Cornejo MD, FACC /INF
--- NOTE | 2020-04-15 13:54 | NUR ---
ON-GOING ASSESSMENT: CM REVIEWED CHART. PT HAD EKG AND CARDIOLOGY HAS BEEN CONSULTED AND PLANS TO MOVE TO TELEMETRY UNIT. [facility] IS FOLLOWING AND CAN ACCEPT FOR HH SERVICES AT DISCHARGE. CM NOTIFIED THEM THAT PT IS MOVING TO TELEMETRY UNIT. CM ALSO NOTIFIED [facility] WHO IS FOLLOWING PATIENT FOR LIKELY NEED OF IV ANBX. MARILYN DISCUSSED WITH PT THAT HER FINAL ANBX RECOMMENDATIONS ARE STILL PENDING BUT IF SHE STAYS ON CURRENT REGIMINE CEFEPIME 2GM Q8 WILL COST HER 174.12/WEEK AND SHE STATES SHE CAN AFFORD THIS. IF PATIENT IS STABLE TO LEAVE OVER THE WEEKEND CONTACT [facility] AND SPEAK TO THEIR NURSE PORCELAIN TURNER AT [phone] AND NOTIFY THEM. THEY WILL HAVE TO DO A BEDSIDE TEACHING WITH PATIENT PRIOR TO HER DISCHARGE. [facility] WILL ALSO NEED UPDATED ORDERS FAXED TO THEM AT [phone]. [facility] HH: (P)[phone] (F)[phone] [facility] 15/10 PORCELAIN TURNER:[phone] FAX:[phone]
[2020-04-15 14:36] LABS: CHOLESTEROL 133 mg/dL (<200); HDL CHOLESTEROL 54 mg/dL (>40); LDL CHOLESTEROL 68 mg/dL (<100); MAGNESIUM 2.2 mg/dL (1.8-2.4); TC:HDL 2.5 Ratio (Not establshd); TRIGLYCERIDE 56 mg/dL (<150); VLDL 11 mg/dL (<40)
[2020-04-15 15:16] VITALS: BP 115/72
[2020-04-15 16:10] VITALS: BP 120/80
--- NOTE | 2020-04-15 16:26 | NUR ---
COLLE[facility]E contacted by ID physician requesting assistance with transferring to [facility]. Pt with right septic joint. ID has spoken with physician at [facility]. ID to discuss with pt. Pt had transferred from 4S to 4W earlier this afternoon. [facility] ambulance form and EMTALA form placed on pt's chart. Will need to be completed once info is available regarding acceptance and transfer. Ambulance form will need to be faxed to [facility] and then call to arrange transportation. Copies of form to be left on pt's chart. Original copies to go with pt. Call placed to [facility] transfer center. Requested info faxed for review. COLLETTE contacted Dai in radiology to request images to be uploaded to the [place] to [facility] for review. Attending physician notified. Chart copy requested. Nursing updated. [facility] is following and available to assist as needed.
[2020-04-15] MEDS ORDERED: PROTONIX 20 MG20 M1 PO (17:11)
[2020-04-15] MEDS ORDERED: [UNRECOGNIZED DRUG - CODE] IV PUSH (17:11)
[2020-04-15 19:45] VITALS: BP 97/64
--- NOTE | 2020-04-15 20:03 | NUR ---
PT A&OX4, VSS, DENIES PAIN. NO SIGNS OF DISTRESS. WILL CONTINUE TO MONITOR. PATIENT TRANSFERRED FROM APPROX 1530.
--- NOTE | 2020-04-15 23:27 | NUR ---
A/O X4, RA, AFIB ON THE MONITOR. MEDICATIONS GIVEN PER MAR. UP WITH ASSISTANCE TO THE BSC WITH WALKER AND GB. REPORT GIVEN TO RECEIVING GEORGE ZENG TO NURSE STORM. [facility]RE DEPARTMENT WAS GIVEN UPDATE AND IS TRANSPORTING PT AT THIS TIME. TYLENOL GIVEN AT START OF SHIFT FOR LEFT SIDED HEAD PAIN AND DISCOMFORT TO THE RIGHT KNEE.
== END 2020-04-15 23:20 | DRG 485 ==
LOC: ER 13:11 → EROBS 18:38 → 4S 18:38 → 4W 04-15 15:17
PROVIDERS: Emergency Medicine; Orthopaedic Surgery Sports Medicine; ADMIT Hospitalist; ATTEND Hospitalist
DX: T84.53XA Infection and inflammatory reaction due to internal right knee prosthesis, initial encounter (principal); N17.0 Acute kidney failure with tubular necrosis; R65.11 Systemic inflammatory response syndrome (SIRS) of non-infectious origin with acute organ dysfunction; M00.9 Pyogenic arthritis, unspecified; N17.9 Acute kidney failure, unspecified; E87.1 Hypo-osmolality and hyponatremia; M00.861 Arthritis due to other bacteria, right knee; M06.9 Rheumatoid arthritis, unspecified; E78.00 Pure hypercholesterolemia, unspecified; F41.9 Anxiety disorder, unspecified; I48.91 Unspecified atrial fibrillation; Z96.653 Presence of artificial knee joint, bilateral; G43.909 Migraine, unspecified, not intractable, without status migrainosus; K21.9 Gastro-esophageal reflux disease without esophagitis; N18.9 Chronic kidney disease, unspecified; D64.9 Anemia, unspecified; B96.5 Pseudomonas (aeruginosa) (mallei) (pseudomallei) as the cause of diseases classified elsewhere; E16.2 Hypoglycemia, unspecified; M62.84 Sarcopenia; R44.1 Visual hallucinations; M81.0 Age-related osteoporosis without current pathological fracture; E87.8 Other disorders of electrolyte and fluid balance, not elsewhere classified; E78.5 Hyperlipidemia, unspecified; Z20.822 Contact with and (suspected) exposure to COVID-19; Z90.710 Acquired absence of both cervix and uterus; Z98.42 Cataract extraction status, left eye; Z79.01 Long term (current) use of anticoagulants; Z98.41 Cataract extraction status, right eye; Z87.891 Personal history of nicotine dependence; Z79.52 Long term (current) use of systemic steroids
CPT/HCPCS: 10195; 27000; 50010; 50101; 50405; 56527; 57103; 57180; 62110; 62900; 70005

== ENCOUNTER → 2020-05-05 | Outpatient (CLI) | payer OTHER, BC ==
[~2020-05-05] MED LIST changes: +ELIQUIS5 MG PO; +PACERONE 200 M200 M1 PO; +PROTONIX 20 MG20 M1 PO; +RISPERIDONE1 MG PO; +[UNRECOGNIZED DRUG - CODE] IV PUSH
== END ==
LOC: SJCVC 15:05
PROVIDERS: ATTEND Internal Medicine Cardiovascular Disease
DX: I48.0 Paroxysmal atrial fibrillation (principal); R94.31 Abnormal electrocardiogram [ECG] [EKG]; I44.0 Atrioventricular block, first degree; I48.3 Typical atrial flutter; M06.9 Rheumatoid arthritis, unspecified; G43.909 Migraine, unspecified, not intractable, without status migrainosus; K21.9 Gastro-esophageal reflux disease without esophagitis; R60.0 Localized edema; Z96.653 Presence of artificial knee joint, bilateral; Z98.890 Other specified postprocedural states; Z90.710 Acquired absence of both cervix and uterus; Z79.899 Other long term (current) drug therapy; Z87.891 Personal history of nicotine dependence; Z82.49 Family history of ischemic heart disease and other diseases of the circulatory system

== ENCOUNTER → 2020-08-03 | Outpatient (CLI) | payer OTHER, BC | LOC: SJCVC 15:39 | PROVIDERS: ATTEND Internal Medicine Cardiovascular Disease | DX: R94.31 Abnormal electrocardiogram [ECG] [EKG] (principal); I44.0 Atrioventricular block, first degree; I48.3 Typical atrial flutter; I48.0 Paroxysmal atrial fibrillation; M06.9 Rheumatoid arthritis, unspecified; G43.909 Migraine, unspecified, not intractable, without status migrainosus; K21.9 Gastro-esophageal reflux disease without esophagitis; Z98.890 Other specified postprocedural states; Z79.899 Other long term (current) drug therapy; Z87.891 Personal history of nicotine dependence; Z82.49 Family history of ischemic heart disease and other diseases of the circulatory system ==

== ENCOUNTER → 2020-12-14 | Outpatient (CLI) | payer OTHER, BC | LOC: SJCVC 13:43 | PROVIDERS: ATTEND Internal Medicine Cardiovascular Disease | DX: R94.31 Abnormal electrocardiogram [ECG] [EKG] (principal); I48.0 Paroxysmal atrial fibrillation; R06.02 Shortness of breath; D64.9 Anemia, unspecified; M06.9 Rheumatoid arthritis, unspecified; G43.909 Migraine, unspecified, not intractable, without status migrainosus; K21.9 Gastro-esophageal reflux disease without esophagitis; Z79.899 Other long term (current) drug therapy; Z79.891 Long term (current) use of opiate analgesic; Z87.891 Personal history of nicotine dependence; Z72.89 Other problems related to lifestyle ==